=== PATIENT | male | born 1995 | race Caucasian/White ===

== ENCOUNTER 2016-06-19 03:11 | Inpatient (IN) | payer BC ==
[~2016-06-19] VITALS: Ht 182.9 cm; Wt 80.0 kg
[2016-06-19] MEDS ORDERED: ESCI10TA17 PO (03:42)
[2016-06-19 04:03] LABS: HEMATOCRIT 40.3 % (42-52); MEAN CELL VOLUME 84.7 fL (80-100); MEAN CORPUSCULAR HEMOGLOBIN 29.8 pg (25-34); MEAN CORPUSCULAR HGB CONC 35.2 g/dl (32-36); MEAN PLATELET VOLUME 11.8 fL (7.4-10.4); PLATELET COUNT 241 K/uL (130-400); RED BLOOD COUNT 4.76 M/uL (4.7-6.1); WHITE BLOOD COUNT 7.95 K/uL (4.8-10.8)
[2016-06-19 04:21] LABS: ALT/SGPT 22 U/L (12-78); AST/SGOT 13 U/L (15-37); BLOOD UREA NITROGEN 12 mg/dl (7-18); BUN/CREATININE RATIO 14.4 (10-20); CALCIUM 8.4 mg/dl (8.5-10.1); CARBON DIOXIDE 24 mmol/L (21-32); CHLORIDE 106 mmol/L (98-107); CREATININE 0.85 mg/dl (0.60-1.40); GLUCOSE 105 mg/dl (70-99); POTASSIUM 3.2 mmol/L (3.5-5.1); SODIUM 141 mmol/L (136-145)
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
[2016-06-19 04:32] LABS: ALKALINE PHOSPHATASE 59 U/L (45-117); THYROID STIMULATING HORMONE 0.948 uIu/ml (0.300-4.500)
[2016-06-19 04:33] LABS: ACETAMINOPHEN < 2 ug/ml (10-30)
[2016-06-19 04:51] LABS: URINE APPEARANCE CLEAR (CLEAR); URINE BILIRUBIN NEG (NEG); URINE COLOR YELLOW; URINE NITRITE NEG (NEG); URINE SPECIFIC GRAVITY 1.003 (1.000-1.030); UROBILINOGEN NEG (NEG)
[2016-06-19 04:53] LABS: MANUAL MICROSCOPIC REQUIRED? NO; REVIEW REQ? NO
[2016-06-19 05:43] LABS: BENZODIAZEPINE, URINE NEG (NEG); COCAINE,URINE NEG (NEG); PHENCYCLIDINE, URINE NEG (NEG)
--- NOTE | 2016-06-19 07:06 | EMERGENCY ROOM VISIT NOTE ---
ED Visit Note This patient was signed out to me at shift change by Dr. Larry. At that point, the patient was medically cleared and was sobering up waiting for mental health evaluation. I went in to see him and he was resting comfortably. He was seen by the mental health worker. They are going to take in voluntarily at [address] [facility]. They had asked that we start him on his Lexapro 10 mg by mouth as well as a nicotine patch which I did. His potassium is also low at 3.2 mL and he was given KCl 20 mEq by mouth. He started complaining that he has some mild jaw pain and I went to reassess him. He has no swelling and he has no step-off . He has minimal tenderness. I offered to order a CT for imaging and he declined. I do not think he likely has a fracture and he has no evidence of any dental abnormality. he will be admitted for further inpatient treatment and evaluation to [facility]. our psychiatric [facility]
[2016-06-19] MEDS ORDERED: ESCITALOPRAM OXALATE 10 MG TAB PO STA (09:31)
[2016-06-19] MEDS ORDERED: NICOTINE 21 MG/24 HR TDSY TD STA (09:31)
[2016-06-19 11:12] VITALS: O2SAT 98
[2016-06-19] MEDS ORDERED: POTASSIUM CHLORIDE 10 MEQ TABCR PO STA (11:19)
[2016-06-19] MEDS ORDERED: NURSING VERBAL MED ORDER ONE (13:30)
[2016-06-19 14:41] VITALS: BP 118/77; PULSE 78; TEMP 36.6; Ht 182.9 cm; Wt 80.0 kg
[2016-06-19] MEDS ORDERED: ACETAMINOPHEN 325 MG TAB PO PRN (15:00)
[2016-06-19] MEDS ORDERED: MAGNESIUM HYDROXIDE SUSP 30 ML UDC PO PRN (15:00)
[2016-06-19] MEDS ORDERED: BISMUTH SUBSALICYLATE PER ML OMNICELL CHARGE PO PRN (15:00)
[2016-06-19] MEDS ORDERED: ALUMINUM/MAGNESIUM SUSP 30 ML UDC PO PRN (15:00)
[2016-06-19] MEDS ORDERED: SODIUM CHLORIDE 0.65% NA SOLN 45 ML (OCEAN) PRN (15:00)
[2016-06-19] MEDS ORDERED: hydrOXYzine HCL 25 MG TAB PO PRN ×2 (15:00)
[2016-06-19 17:12] VITALS: BP 143/95; PULSE 60; TEMP 36.8
[2016-06-19 22:27] VITALS: BP 126/83; PULSE 62; TEMP 36.2
[2016-06-20 07:06] VITALS: BP_SYST 121; BP_DIAS 78; BP_DIAS 84; PULSE 77; PULSE 82; TEMP 36.9
[2016-06-20 08:59] VITALS: BP 140/83; PULSE 80; TEMP 36.6
[2016-06-20 12:37] VITALS: BP 124/75; PULSE 75; TEMP 36.6
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
[2016-06-20] MEDS: ESCITALOPRAM OXALATE 10 MG TAB PO SCH (13:12)
[2016-06-20 17:21] VITALS: BP 146/82; PULSE 56; TEMP 36.5
[2016-06-20] MEDS: NICOTINE POLACRILEX 2 MG GUM MT PRN (19:33)
[2016-06-20 20:53] VITALS: BP 140/78; PULSE 60; TEMP 36.6
[2016-06-21 07:03] VITALS: BP_SYST 124; BP_SYST 126; BP_DIAS 69; BP_DIAS 78; PULSE 64; PULSE 69; TEMP 36.9
[2016-06-21 08:17] LABS: CHOLESTEROL/HDL RATIO 2.4
[2016-06-21] MEDS ORDERED: ESCITALOPRAM OXALATE 10 MG TAB PO SCH (09:00)
[2016-06-21] MEDS: ESCITALOPRAM OXALATE 10 MG TAB PO SCH (09:04)
[2016-06-21] MEDS: NICOTINE POLACRILEX 2 MG GUM MT PRN ×2 (09:21→17:54)
[2016-06-21 09:22] VITALS: BP 126/78; PULSE 64; PULSE 69; TEMP 36.9
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
[2016-06-22 07:02] VITALS: BP_SYST 117; BP_SYST 123; BP_DIAS 69; BP_DIAS 75; PULSE 68; PULSE 97; TEMP 36.8
[2016-06-22] MEDS: ESCITALOPRAM OXALATE 10 MG TAB PO SCH (08:49)
[2016-06-22] MEDS: NICOTINE POLACRILEX 2 MG GUM MT PRN ×2 (10:11→20:17)
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
[2016-06-23 06:59] VITALS: BP_SYST 105; BP_SYST 111; BP_DIAS 65; BP_DIAS 72; PULSE 52; PULSE 58; TEMP 36.7
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
[2016-06-23] MEDS: ESCITALOPRAM OXALATE 10 MG TAB PO SCH (09:29)
== END 2016-06-23 13:18 | disposition home or self-care (01) | DRG 881 ==
LOC: C.EDA 03:12 → C.MHU 13:29
PROVIDERS: ADMIT Psychiatry & Neurology Child & Adolescent Psychiatry; ATTEND Psychiatry & Neurology Child & Adolescent Psychiatry
DX: F32.9 Major depressive disorder, single episode, unspecified (principal); F17.210 Nicotine dependence, cigarettes, uncomplicated; F10.10 Alcohol abuse, uncomplicated; F41.9 Anxiety disorder, unspecified; Z79.899 Other long term (current) drug therapy